=== PATIENT | male | born 1960 | race Caucasian/White ===

== ENCOUNTER 2017-10-06 06:41 | Inpatient (IN) | payer OTHER ==
[~2017-10-06] VITALS: Ht 180.3 cm; Wt 82.7 kg
[~2017-10-06 06:41] MED LIST: ACETAMINOPHEN 1000 MG/100 ML 100 ML IV ONE; ASPI81 PO; LACTATED RINGER'S 1000 ML INJ 1,000 ML ONE; VITA100T65 PO; [UNRECOGNIZED DRUG - OTHER]; ceFAZolin 2 GM PREMIX 50 ML ONE
[2017-10-06] MEDS ORDERED: MIDAZOLAM HCL 2 MG/2 ML VIAL ONE (07:14)
[2017-10-06] MEDS ORDERED: LIDOCAINE 1%/EPINEPHrine 1:100,000 SOLN 30 ML VIAL ONE (07:43)
[2017-10-06] MEDS ORDERED: metroNIDAZOLE 500 MG INJ 100 ML IV ONE (10:02)
[2017-10-06] MEDS: LACTATED RINGER'S 1000 ML INJ 1,000 ML IV SCH ×2 (10:34→20:00)
[2017-10-06] MEDS ORDERED: diphenhydrAMINE HCL 50 MG/ML VIAL IV PUSH PRN (10:45)
[2017-10-06] MEDS ORDERED: MORPHINE SULFATE 4 MG/ML INJ IV PUSH PRN (10:45)
[2017-10-06] MEDS ORDERED: NALOXONE HCL 0.4 MG/ML AMP IV PUSH PRN (10:45)
[2017-10-06] MEDS ORDERED: oxyCODONE/ACETAMINOPHEN 5 MG/325 MG TAB PO PRN (10:45)
[2017-10-06] MEDS ORDERED: SODIUM CHLORIDE 0.9% FLUSH 10 ML FLUSH IV FLUSH PRN (10:45)
[2017-10-06] MEDS ORDERED: Post-op Orders (for Pharmacy) XX ONE (10:45)
[2017-10-06] MEDS ORDERED: ONDANSETRON HCL 4 MG/2 ML VIAL IV PUSH PRN (10:45)
[2017-10-06 12:00] VITALS: BP 120/71; PULSE 90; RESP 18; TEMP 98; O2SAT 99
[2017-10-06] MEDS: KETOROLAC TROMETHAMINE 30 MG/ML (IVP) VIAL IV PUSH SCH ×2 (13:18→20:00)
[2017-10-06] MEDS: ACETAMINOPHEN/HYDROcodone 325 MG/10 MG TAB PO PRN (13:18)
[2017-10-06 14:00] VITALS: PULSE 90
[2017-10-06 14:37] VITALS: BP 118/65; PULSE 92; RESP 19; TEMP 98.7; O2SAT 97
--- NOTE | 2017-10-06 14:56 | PD.OP ---
cc: Donavon Wagner MD Operative Report Date of Surgery: Oct 06, 2017 Preoperative Diagnosis: (1) History of umbilical hernia repair (2) Wound, surgical, nonhealing Postoperative Diagnosis: (1) Adhesion of abdominal wall (2) Wound, surgical, nonhealing (3) History of umbilical hernia repair Procedure: Excision nonhealing umbilical wound, umbilical mesh, and small bowel resection Anesthesia: GEN Surgeon: Donavon Wagner Block Cleaner(s): Staff Operation and Findings: EBL: 10cc Operative findings: The umbilical skin and umbilical wound was densely adherent to underlying mesh. There was a loop of small bowel densely adherent to the mesh and unable to be safely. This required small bowel resection. Procedure in detail: The patient was taken to the operating room and placed in supine position. Gen. anesthesia was induced. The abdomen was prepped and draped in usual sterile fashion and a surgical timeout was performed to verify correct patient procedure and site. Local anesthetic was injected in skin and subcutaneous tissue surrounding the umbilicus. An elliptical incision was made excising the damaged and thinned umbilical skin including Prolene suture protruding through the skin. The thinned skin was stuck to underlying mesh. It was apparent the entire mesh would need to be removed. It was about 4 cm in diameter. I'm unsure of the prior technique as it was 15-20 years ago. Circumferentially the mesh was from surrounding tissue using electrocautery and sharp dissection. There was noted to be small bowel adherent to the intra-abdominal portion of the mesh. During dissection there was serosal injury due to the dense adherence of the small bowel to the mesh. The small bowel was unable to be safely from the mesh and therefore a small bowel resection was required. On either side of the involved small bowel the bowel was transected with 75 mm blue load stapler. A [id number] functional end-to-end anastomosis was performed in the end enterotomy closed with TX 60 blue load stapler. The end of the staple line was reinforced with a 3-0 silk suture. The mesentery was closed with 3-0 silk suture. The bowel resection and I opted not to place another mesh. The fascia was closed with a running #1 PDS suture. Skin was closed with 4-0 Monocryl subcuticular. Dermabond was placed. The patient tolerated the procedure well. Due to the bowel resection he was transferred to [place] and admitted to the hospital for further care. Donavon Wagner MD Oct 06, 2017 14:56
[2017-10-06 16:00] VITALS: PULSE 88
[2017-10-06 18:00] VITALS: PULSE 92
[2017-10-06 20:00] VITALS: BP 110/70; PULSE 63; RESP 20; TEMP 97.7; O2SAT 95
[2017-10-06] MEDS: SODIUM CHLORIDE 0.9% FLUSH 10 ML FLUSH IV FLUSH SCH (20:01)
[2017-10-07] VITALS: BP 109/57; PULSE 64; RESP 20; TEMP 97.2; O2SAT 100
[2017-10-07] MEDS: KETOROLAC TROMETHAMINE 30 MG/ML (IVP) VIAL IV PUSH SCH ×4 (02:05→21:33)
[2017-10-07] MEDS: LACTATED RINGER'S 1000 ML INJ 1,000 ML IV SCH ×2 (06:03→16:34)
[2017-10-07 08:00] VITALS: BP 130/64; PULSE 83; RESP 17; TEMP 98.8; O2SAT 98
[2017-10-07] MEDS: ENOXAPARIN SODIUM 40 MG/0.4 ML SYRINGE SQ SCH (09:41)
[2017-10-07] MEDS: ACETAMINOPHEN/HYDROcodone 325 MG/10 MG TAB PO PRN ×2 (09:41→16:53)
[2017-10-07] MEDS: SODIUM CHLORIDE 0.9% FLUSH 10 ML FLUSH IV FLUSH SCH ×2 (09:43→21:34)
--- NOTE | 2017-10-07 11:58 | HHI.PR ---
Subjective Subjective Notes No flatus. Tolerating fulls. Pain is controlled. Objective Vitals/I&O Vital Signs Date Time Temp Pulse Resp B/P (MAP) Pulse Ox O2 Delivery O2 Flow Rate FiO2 10/07/17 08:00 98.8 83 17 130/64 (86) 98 Labs Laboratory Tests Test 10/06/17 13:25 Nasal Screen MRSA (PCR) MRSA DETECTED Narrative Exam NAD Abd: moderately distended, soft, inc c/d/i A/P Assessment and Plan 57 yo M POD 1 s/p excision of umbilical wound, mesh, and small bowel resection. Stable post op but no flatus and mildly distended. Await return of bowel function. Try soft diet. Donavon Wagner MD Oct 07, 2017 11:58
[2017-10-07 12:00] VITALS: BP 118/68; PULSE 64; RESP 16; TEMP 97.6; O2SAT 93
[2017-10-07 16:00] VITALS: BP 147/67; PULSE 82; RESP 17; TEMP 96.4; O2SAT 97
[2017-10-07 20:00] VITALS: BP 114/68; PULSE 87; RESP 18; TEMP 97.5; O2SAT 97
[2017-10-08] VITALS: BP 110/64; PULSE 76; RESP 18; TEMP 96.2; O2SAT 95
[2017-10-08] MEDS: LACTATED RINGER'S 1000 ML INJ 1,000 ML IV SCH (01:33)
[2017-10-08] MEDS: KETOROLAC TROMETHAMINE 30 MG/ML (IVP) VIAL IV PUSH SCH ×3 (01:33→10:01)
[2017-10-08 08:00] VITALS: BP 128/62; PULSE 80; RESP 16; TEMP 96.1; O2SAT 96
[2017-10-08] MEDS: ENOXAPARIN SODIUM 40 MG/0.4 ML SYRINGE SQ SCH (10:02)
[2017-10-08] MEDS: SODIUM CHLORIDE 0.9% FLUSH 10 ML FLUSH IV FLUSH SCH (10:02)
[2017-10-08 12:00] VITALS: BP 120/72; PULSE 88; RESP 17; TEMP 97.7; O2SAT 98
[2017-10-08] MEDS ORDERED: PROPOFOL 200 MG/20 ML AMP IV ONE (12:00)
[2017-10-08] MEDS ORDERED: ONDANSETRON HCL 4 MG/2 ML VIAL IV ONE (12:00)
[2017-10-08] MEDS ORDERED: KETOROLAC TROMETHAMINE 30 MG/ML (IVP) VIAL IV PUSH ONE (12:00)
[2017-10-08] MEDS ORDERED: OXYC1TAB63 PO (12:27)
--- NOTE | 2017-10-08 12:31 | HHI.DS ---
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 On POD 1 he did not yet have flatus or bowel movt, but by POD 2 he tolerated regular diet and had bowel movts. Pain is controlled. Pt Condition on Discharge: Good Discharge Disposition: Discharge Home Discharge Instructions DIET: Follow Instructions for: As Tolerated, No Restrictions Activities you can perform: See Additionl Instruction Other Activity Instructions: Ok to shower. Avoid heavy lifting. Abdominal binder for comfort. Follow up Referrals: Speech Therapy Surgical - 2 Weeks with Donavon Wagner MD New Medications: Oxycodone HCl/Acetaminophen (Oxycodone-Acetaminophen 5-325) 5 Mg-325 Mg Tablet 1-2 TAB PO Q4H PRN for PAIN, #30 TAB Continued Medications: Aspirin (Aspirin) 81 Mg Tab 81 MG PO DAILY Vitamin E (Vitamin E) 100 Unit Tab 100 UNIT PO [Talonex] () Donavon Wagner MD Oct 08, 2017 12:31
== END 2017-10-08 13:02 | disposition home or self-care (01) | DRG 909 ==
LOC: ESDC 06:41 → N03B 10:37 → N07A 19:04
PROVIDERS: ADMIT Surgery; ATTEND Surgery
PROC: 0WPF0JZ Removal of Synthetic Substitute from Abdominal Wall, Open Approach (ICD-10-PCS; 2017-10-06)
PROC: 0HB7XZZ Excision of Abdomen Skin, External Approach (ICD-10-PCS; 2017-10-06)
PROC: 0DB80ZZ Excision of Small Intestine, Open Approach (ICD-10-PCS; principal; 2017-10-06 08:09)
DX: T81.89XA Other complications of procedures, not elsewhere classified, initial encounter (principal); T85.9XXA Unspecified complication of internal prosthetic device, implant and graft, initial encounter; K66.0 Peritoneal adhesions (postprocedural) (postinfection); Z22.322 Carrier or suspected carrier of Methicillin resistant Staphylococcus aureus; Z87.891 Personal history of nicotine dependence; Z85.828 Personal history of other malignant neoplasm of skin
CPT/HCPCS: 87641; 88307; 94150; J0131; J0690; J1650; J1885; J2250; J2405; J7120